=== PATIENT | male | born 1995 | race Caucasian/White ===

== ENCOUNTER 2017-08-29 14:40 | Outpatient (CLI) | payer OTHER | END 2017-08-29 14:41 | disposition critical access hospital (66) | LOC: EMS 14:40 | PROVIDERS: ATTEND Surgery | DX: M54.2 Cervicalgia (principal); R51 Headache; M79.662 Pain in left lower leg; M79.661 Pain in right lower leg; V49.60XA Unspecified car occupant injured in collision with unspecified motor vehicles in traffic accident, initial encounter; Y92.413 State road as the place of occurrence of the external cause | CPT/HCPCS: A0425; A0429 ==

== ENCOUNTER 2017-08-29 15:02 | Emergency (ER) | payer OTHER ==
[2017-08-29 15:24] VITALS: BP 142/77
[2017-08-29] MEDS ORDERED: CYCLOBENZAPRINE 10 MG TABLET PO STA (15:33)
[2017-08-29] MEDS ORDERED: KETOROLAC 60 MG/2 ML VIAL IM STA (15:33)
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
--- NOTE | 2017-08-29 16:44 | CT Preliminary Report ---
Exam: CT CERVICAL SPINE W/O IMPRESSION: 1. Minimal right convex curvature centered at C6-C7, possibly positional. 2. Otherwise normal cervical spine CT. [facility] SITE ID: [id number]
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
--- NOTE | 2017-08-29 17:01 | XRAY Preliminary Report ---
Exam: XR TIB/FIB LT IMPRESSION: Negative left lower leg [facility] SITE ID: [id number]
== END 2017-08-29 17:20 | disposition home or self-care (01) ==
LOC: ED 15:02
DX: M62.838 Other muscle spasm (principal); S80.812A Abrasion, left lower leg, initial encounter; S80.12XA Contusion of left lower leg, initial encounter; V43.52XA Car driver injured in collision with other type car in traffic accident, initial encounter; F17.200 Nicotine dependence, unspecified, uncomplicated
CPT/HCPCS: 72125; 73590; 96372; 99283; 99284; A9270

== ENCOUNTER 2019-01-14 21:27 | Emergency (ER) | payer OTHER ==
[2019-01-14 21:36] VITALS: BP 131/80
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
== END 2019-01-14 23:06 | disposition home or self-care (01) ==
LOC: ED 21:27
DX: S92.521A Displaced fracture of middle phalanx of right lesser toe(s), initial encounter for closed fracture (principal); X58.XXXA Exposure to other specified factors, initial encounter; Y93.89 Activity, other specified; F17.200 Nicotine dependence, unspecified, uncomplicated
CPT/HCPCS: 73660; 99282; 99283